=== PATIENT | male | born 1975 | race Caucasian/White ===

== ENCOUNTER 2020-01-14 10:42 | Outpatient (CLI) | payer OTHER, SELFPAY ==
--- NOTE | 2020-01-14 10:51 | XR_ITS ---
WS: [id number] RIGHT ELBOW: 3 VIEW(S) TECHNIQUE: AP, oblique and lateral. HISTORY: LEFT ELBOW INJURY COMPARISON: None available. No acute fractures or dislocation. No joint effusion. No soft tissue abnormality. XR/XR elbow RT min 3V* [id number] IMPRESSION: Normal RIGHT elbow.
--- NOTE | 2020-01-14 10:51 | XR_ITS ---
WS: [id number] LEFT ELBOW: 3 VIEW(S) TECHNIQUE: AP, oblique and lateral. HISTORY: LEFT ELBOW INJURY COMPARISON: None available. No acute fractures or dislocation. No joint effusion. Enthesopathy at the triceps tendon attachment. No soft tissue abnormality. XR/XR elbow LT min 3V* [id number] IMPRESSION: No fracture. No joint effusion.
== END 2020-01-14 10:43 | disposition home or self-care (01) ==
LOC: RAD 10:47
PROVIDERS: Visit Provider Nurse Practitioner Family
DX: S59.902A Unspecified injury of left elbow, initial encounter (principal); X58.XXXA Exposure to other specified factors, initial encounter
CPT/HCPCS: 73080

== ENCOUNTER 2020-01-17 15:28 | Emergency (ER) | payer OTHER, SELFPAY ==
[2020-01-17 16:22] VITALS: BP 117/75; PULSE 85; RESP 14; TEMP 36.8; O2SAT 99; BMI 26.4
--- NOTE | 2020-01-17 16:48 | CTR_ITS ---
PROCEDURE INFORMATION: Exam: CT Cervical Spine Without Contrast Exam date and time: 01/17/2020 5:02 PM Age: 44 years old Clinical indication: Injury or trauma; Fall; Initial encounter; Blunt trauma; Injury details: Mid back pain; Additional info: Fall, upper back and neck pain TECHNIQUE: Imaging protocol: Computed tomography images of the cervical spine without contrast. Radiation optimization: All CT scans at this facility use at least one of these dose optimization techniques: automated exposure control; mA and/or kV adjustment per patient size (includes targeted exams where dose is matched to clinical indication); or iterative reconstruction. COMPARISON: No relevant prior studies available. RADIATION DOSE METRICS: Total DLP (mGy-cm): 930.23 FINDINGS: Vertebrae: Levoscoliosis. Discs/Spinal canal/Neural foramina: No significant disc protrusion. No severe spinal canal stenosis. No significant neural foraminal narrowing. Soft tissues: Unremarkable. Dental: Examination is limited secondary to metallic artifact from dental fillings and/or dental hardware. Lungs: Lung apices are normal. CT/CT cervical spin wo con* [id number] IMPRESSION: No acute C-spine findings. Radiation Dose CTDIVOL = (mGy): DLP = 930.23 (mGy-cm)
--- NOTE | 2020-01-17 16:48 | CTR_ITS ---
PROCEDURE INFORMATION: Exam: CT Chest With Contrast Exam date and time: 01/17/2020 5:02 PM Age: 44 years old Clinical indication: Injury or trauma; Fall; Initial encounter; Blunt trauma (contusions or hematomas); Additional info: Fall, back pain TECHNIQUE: Imaging protocol: Computed tomography of the chest with intravenous contrast. Radiation optimization: All CT scans at this facility use at least one of these dose optimization techniques: automated exposure control; mA and/or kV adjustment per patient size (includes targeted exams where dose is matched to clinical indication); or iterative reconstruction. Contrast material: OMNI; Contrast volume: 95 ml; Contrast route: INTRAVENOUS (IV); COMPARISON: No relevant prior studies available. RADIATION DOSE METRICS: Total DLP (mGy-cm): 848.21 FINDINGS: Lungs: Unremarkable. No consolidation. No masses. Pleural space: Unremarkable. No pneumothorax. No pleural effusion. Heart: Unremarkable. No cardiomegaly. No pericardial effusion. Aorta: Unremarkable. No aortic aneurysm. Lymph nodes: Unremarkable. No enlarged lymph nodes. Bones/joints: Displaced T3 and T4 spinous process fractures. Soft tissues: Unremarkable. CT/CT chest w con* [id number] IMPRESSION: Displaced T3 and T4 spinous process fractures. Radiation Dose CTDIVOL = (mGy): DLP = 848.21 (mGy-cm)
--- NOTE | 2020-01-17 16:48 | CTR_ITS ---
PROCEDURE INFORMATION: Exam: CT Thoracic Spine Without Contrast Exam date and time: 01/17/2020 5:02 PM Age: 44 years old Clinical indication: Injury or trauma; Fall; Initial encounter; Blunt trauma (contusions or hematomas); Additional info: Fall, back pain TECHNIQUE: Imaging protocol: Computed tomography images of the thoracic spine without contrast. Radiation optimization: All CT scans at this facility use at least one of these dose optimization techniques: automated exposure control; mA and/or kV adjustment per patient size (includes targeted exams where dose is matched to clinical indication); or iterative reconstruction. COMPARISON: No relevant prior studies available. RADIATION DOSE METRICS: Total DLP (mGy-cm): 848.21 FINDINGS: Vertebrae: Acute T3 and T4 spinous process fractures with mild displacement and angulation. Discs/Spinal canal/Neural foramina: No significant disc protrusion. No severe spinal canal stenosis. No significant neural foraminal narrowing. Soft tissues: Unremarkable. CT/CT thoracic spin wo con* [id number] IMPRESSION: Acute T3 and T4 spinous process fractures with mild displacement and angulation. Radiation Dose CTDIVOL = (mGy): DLP = 848.21 (mGy-cm)
--- NOTE | 2020-01-17 16:54 | ED_ITS ---
HPI - Fall General: Chief Complaint: Fall Stated Complaint: FELL DOWN A WILLIAM Time Seen by Provider: 01/17/20 16:32 History of Present Illness: HPI Narrative: This patient is a 44-year-old male who was out cutting some brush. He lost his balance and fell/rolled down about a 30 foot embankment. This occurred about 6 hours prior to coming in. He is complaining of severe pain in his upper back and this pain gets worse with any movement of his arms or taking a deep breath. He denies shortness of breath. He denies abdominal pain or hematuria. He denies any numbness or tingling in his arms or legs. He is able to ambulate without difficulty. He did not hit his head and has no loss of consciousness. MD complaint: fall Onset (ago): hour(s) (6) Fall from: standing and from height (distance) Fall witnessed: no Place fall occurred: home Loss of consciousness: None Prolonged down time: no Context: tripped/slipped Associated symptoms-after fall: Denies abdominal pain, chest pain, headache(s) or neck pain Review of Systems General: Reports: 10 or more systems reviewed and unremarkable except in HPI and below Const: Denies: fever(s), chills, fatigue or malaise Eyes: Denies: change in vision ENMT: Denies: odynophagia Card: Denies: chest pain or swelling of feet/ankles Resp: Reports: pain on inspiration; Denies: dyspnea, productive cough or non-productive cough GI: Denies: abdominal pain, nausea or vomiting : Denies: flank pain Musc: Reports: back pain; Denies: neck pain Skin/Breast: Denies: rash Neuro: Denies: headache(s), numbness in extremities or weakness in extremities Malik/Lymph: Denies: easy bruising or easy bleeding Physical Exam Const: COMMON NORMALS: no acute distress, patient oriented x3, no limitations and alert GENERAL APPEARANCE: cooperative and comfortable HENMT: HEAD & SCALP: normal to inspection FACE & SINUS: normal facial exam Eye: GENERAL EYE: appearance normal, both eyes and all related structures Neck/C-Spine: COMMON NORMALS: supple, no meningeal signs and no JVD Chest: COMMONS NORMALS: normal inspection of the chest CHEST: Yes abnormal inspection of the chest (Ecchymosis on the back in the upper T-spine area. No rib tenderness) and No localized rib tenderness with anteroposterior compression Resp: COMMON NORMALS: normal respiratory effort, No use of accessory muscles and clear to auscultation bilaterally AUSCULTATION: clear to auscultation bilaterally Cardio: COMMON NORMALS: no JVD, regular rate, regular rhythm and No murmurs present (Cardio) RATE: regular rate RHYTHM: regular rhythm GI: COMMON NORMALS: Normal to inspection, nondistended, normoactive bowel sounds present, Soft to palpation and non-tender INSPECTION: Yes normal to inspection AUSCULTATION: Yes normoactive bowel sounds PALPATION: Yes Soft to palpation Back/Pelvis: THORACIC SPINE/UPPER BACK: Yes thoracic spinal tenderness T-spine tenderness location: T2, T3, T4, T5 and T6 (Severe tenderness with ecchymosis and swelling) BACK IMAGE (MALE): 1. Ecchymosis, swelling, severe tenderness 2. Ecchymosis 3. Ecchymosis 4. Ecchymosis Extremity: COMMON NORMALS: normal to inspection Neuro: COMMON NORMALS: patient oriented x3, moves all extremities, no focal motor deficits and no sensory deficits noted SENSORIUM/ORIENTATION: Yes alert MENINGEAL SIGNS: Yes no meningeal signs Psych: COMMON NORMALS: mental status grossly normal, cooperative and normal affect Skin: COMMON NORMALS: no rashes or lesions noted and turgor normal GENERAL SKIN EXAM: no rashes or lesions noted and turgor normal Course ED course: Patient with a negative work-up except for 2 spinal process fractures at T3 and T4. After some pain medication he was much more comfortable and able to move around somewhat. He understands return precautions and follow- up instructions. Consultations: Consultation #1: Dr. Gerardo, neurosurgery at [facility] - advised ENDOSCOPIC TECHNICIAN brace, pain control and outpatient follow up with him in his office next week. Vital Signs: Vital signs: Vital Signs Temperature 98.2 F 01/17/20 16:22 Pulse Rate 78 01/17/20 21:16 Respiratory Rate 18 01/17/20 21:16 Blood Pressure 132/78 01/17/20 21:16 Pulse Oximetry 99 01/17/20 21:16 MDM - Fall Lab Data: Labs: Lab Results 01/17/20 01/17/20 01/17/20 Range/Units 17:20 17:20 17:20 WBC 14.4 H (4.0-10.0) 10^3/ uL RBC 5.09 (4.1-5.3) 10^6/u L Hgb 15.2 (11.7-16.6) g/dL Hct 45.5 (42.0-52.0) % MCV 89.4 (80-94) fL MCH 29.9 (28.0-34.0) pg MCHC 33.4 (30.0-36.0) g/dL RDW 13.2 (12.1-15.1) % Plt Count 339 (130-400) 10^3/c mm MPV 8.8 (7.4-10.4) fL Neut % (Auto) 78.6 % Lymph % (Auto) 14.6 % Person % (Auto) 5.3 % Eos % (Auto) 1.1 % Baso % (Auto) 0.2 % Neut # (Auto) 11.31 H (1.8-7.7) 10^3/u L Lymph # (Auto) 2.1 (0.8-4.8) 10^3/u L Person # (Auto) 0.8 (0.2-0.9) 10^3/u L Eos # (Auto) 0.2 (0.0-0.8) 10^3/u L Baso # (Auto) 0.0 (0.0-0.1) 10^3/u L Nucleated RBC % (a uto) 0 % Nucleated RBCs # 0.0 /100WBC Sodium 136 (136-145) mmol/L Potassium 4.0 (3.5-5.1) mmol/L Chloride 100 (98-107) mmol/L Carbon Dioxide 24 (22-29) mmol/L Anion Gap 16.0 (5-19) BUN 13 (6-20) mg/dL Creatinine 1.0 (0.7-1.2) mg/dL GFR Calculation 81.9 L (90-130) mL/min Glucose 99 (65-115) mg/dL Calculated Osmolal ity 278 L (285-295) mOsm/k g Lactate 1.4 (0.5-2.2) mmol/L Calcium 10.3 (8.5-10.5) mg/dL Total Bilirubin 0.4 (0.15-1.2) mg/dL AST 29 (0-40) U/L ALT 32 (0-41) U/L Alkaline Phosphata se 75 (40-130) IU/L Total Protein 8.2 (6.6-8.7) g/dL Albumin 5.4 H (3.5-5.2) g/dL Globulin 2.8 (1.3-4.6) g/dL Discharge Plan Discharge Patient Disposition: Home Clinical Impression: Fall (on)(from) incline, initial encounter Closed fracture of spinous process of thoracic vertebra Qualifiers: Encounter type: initial encounter Qualified Code(s): S22.008A - Other fracture of unspecified thoracic vertebra, initial encounter for closed fracture Condition: Stable Prescriptions: New oxycodone 5 mg tablet 5 mg PO Q6H PRN (Reason: pain) Qty: 30 RF: 0 naproxen 500 mg tablet 500 mg PO BID PRN (Reason: pain) Qty: 20 RF: 0 No Action Nexium 40 mg Capsule,Delayed Release(Dr/Ec) 40 mg PO DAILY RF: 0 levothyroxine 200 mcg Tablet 225 mcg PO DAILY RF: 0 lisinopril 40 mg Tablet 40 mg PO DAILY RF: 0 Crestor 40 mg Tablet 40 mg PO DAILY RF: 0 Paxil 1 tab PO DAILY RF: 0 Protonix 1 tab PO DAILY RF: 0 Referrals: Blu Gerardo MD [Referring] - 1 week Nola Luciano FNP [Primary Care Provider] - Discharge Diet: Usual diet Discharge Activity: Limit activity as instructed Patient Instructions: Thoracolumbar Fracture (ED) Activity Restrictions/Additional Instructions: You need to be in a ENDOSCOPIC TECHNICIAN brace, and we were not able to get one tonight. Our Flight Service Specialist will call tomorrow to help you in finding one. You can also call the office for the neurosurgeon to see if they can get one for you. No lifting. Limit bending and twisting. Follow up with Dr. Gerardo in [place] at the above address in about a week. Call tomorrow to schedule an appointment. Use the pain meds as prescribed. Return to the ED if new or worse symptoms includ ing trouble breathing, numbness, tingling or weakness. Discharge Date/Time: 01/17/20 21:18 Coding Level of Care Code ED Zookeeper for Chg Fwd Exam Comprehensive
[2020-01-17] MEDS: ondansetron 2 mg/ML SDV 2 mL 4 MG IVP (17:20)
[2020-01-17 17:21] VITALS: RESP 18
[2020-01-17] MEDS: morphine 4 mg/mL SDV 1 mL IVP (17:21)
[2020-01-17 17:30] LABS: Basophils % 0.2 %; Eosinophils # 0.2 10^3/uL (0.0-0.8); Eosinophils % 1.1 %; Hematocrit 45.5 % (42.0-52.0); Hemoglobin 15.2 g/dL (11.7-16.6); Lymphocytes # 2.1 10^3/uL (0.8-4.8); Lymphocytes % 14.6 %; Mean Corpuscular HGB Conc 33.4 g/dL (30.0-36.0); Mean Corpuscular Hemoglobin 29.9 pg (28.0-34.0); Mean Corpuscular Volume 89.4 fL (80-94); Mean Platelet Volume 8.8 fL (7.4-10.4); Monocytes # 0.8 10^3/uL (0.2-0.9); Monocytes % 5.3 %; Neutrophils # 11.31 10^3/uL (1.8-7.7); Neutrophils % 78.6 %; Nucleated Red Blood Cells % 0 %; Platelet Count 339 10^3/cmm (130-400); Red Blood Count 5.09 10^6/uL (4.1-5.3); Red Cell Distribution Width 13.2 % (12.1-15.1); White Blood Count 14.4 10^3/uL (4.0-10.0)
[2020-01-17 17:46] LABS: Lactate (Lactic Acid level) 1.4 mmol/L (0.5-2.2)
[2020-01-17 17:47] LABS: Alanine Aminotransferase 32 U/L (0-41); Albumin Level 5.4 g/dL (3.5-5.2); Alkaline Phosphatase 75 IU/L (40-130); Aspartate Amino Transferase 29 U/L (0-40); Blood Urea Nitrogen 13 mg/dL (6-20); Calcium 10.3 mg/dL (8.5-10.5); Carbon Dioxide 24 mmol/L (22-29); Chloride 100 mmol/L (98-107); Globulin 2.8 g/dL (1.3-4.6); Glomerular Filtration Rate 81.9 mL/min (90-130); Glucose 99 mg/dL (65-115); Osmolality Calculated 278 mOsm/kg (285-295); Sodium 136 mmol/L (136-145); Total Bilirubin 0.4 mg/dL (0.15-1.2); Total Protein 8.2 g/dL (6.6-8.7)
[2020-01-17] MEDS: iohexol 300 mg/mL 100 mL Btl 95 ML IV (18:00)
--- NOTE | 2020-01-17 18:11 | PC.NURSE ---
Patient educated that a urine sample is needed. Patient reports that he is unable to void at this time. Will continue to monitor patient.
[2020-01-17] MEDS: ketorolac 30 mg/mL INJ 15 MG IVP (18:50)
[2020-01-17 18:51] VITALS: RESP 16
[2020-01-17] MEDS: HYDROmorphone 1 mg/mL INJ 1 mL 0.5 MG IVP (18:51)
[2020-01-17 21:15] VITALS: RESP 18; O2SAT 99
[2020-01-17] MEDS: oxyCODONE-APAP 5-325 mg Tablet 2 TAB PO (21:15)
[2020-01-17 21:16] VITALS: BP 132/78; PULSE 78; RESP 18; O2SAT 99
--- NOTE | 2020-01-18 10:08 | DCPLANNER ---
resource manager had message to help patient with getting a DUST OPERATOR brace, manager of case management called [employer], spoke with Judi, was told that she came to the hospital last night and fitted patient for brace. resource manager had another message to speak with patient about getting a primary care physician. resource manager called patient at phone number [phone], patient was not taking any calls at this time.
--- NOTE | 2020-01-21 20:07 | DCPLANNER ---
PT CALLED AND ASKED ABOUT APPT WITH DR MOSQUERA. I CALLED THE DOCTORS OFFICE AND WAS ASKED TO FAX INFORMATION. THEY WILL REVIEW THE INFO AND MAKE PT APPT AND WILL CALL HIM WITH DATE AND TIME. PT WAS NOTIFIED OF THIS BY MYSELF.
--- NOTE | 2020-01-22 10:51 | DCPLANNER ---
LUZMARIA FROM DR GLEZ OFFICE CALLED AND ASKED FOR INFO TO BE SENT TO MAKE PT AN APPT WITH THEIR OFFICE. INFO WAS FAXED TO [phone]
--- NOTE | 2020-01-24 12:27 | PC.SOCIAL ---
Followed up on appt with [facility] jose david Han in ED request. Per Antonette at this clinic pt has appt tomorrow and is aware of appt date and time. Attempted to call patient to verify but unable to reach.
--- NOTE | 2020-01-24 12:29 | PC.SOCIAL ---
patient returned call and indicates he is aware of appt and will have imaging done today and will make his appt tomorrow at [facility]. He appreciates the followup call.
== END 2020-01-17 21:18 | disposition home or self-care (01) ==
LOC: ER 19:51 → ICU 20:18 → ER 20:46
PROVIDERS: Emergency Provider Emergency Medicine; PCP Nurse Practitioner Family
DX: S22.039A Unspecified fracture of third thoracic vertebra, initial encounter for closed fracture (principal); S22.049A Unspecified fracture of fourth thoracic vertebra, initial encounter for closed fracture; W17.81XA Fall down embankment (hill), initial encounter
CPT/HCPCS: 12345; 71260; 72125; 72128; 80053; 83605; 85025; 96374; 96375; 99282; 99284; J1170; J1885; J2270; J2405; Q9967

== ENCOUNTER 2020-02-20 08:55 | Day surgery (SDC) | payer OTHER, SELFPAY ==
[2020-02-18 10:54] VITALS: BMI 21.2
[2020-02-20 09:48] VITALS: BP 125/80; PULSE 70; RESP 18; TEMP 36.4; O2SAT 100
[2020-02-20] MEDS: sodium chloride 0.9% 1,000 ML 30 ML IV (09:49)
--- NOTE | 2020-02-20 10:00 | ANES.PREANE2 ---
Pre-Anesthetic Assessment Pre-Anesthetic Assessment: Height/Weight: Height 1.8 m Weight 68.946 kg Temp Pulse Resp BP Pulse Ox 97.5 F L 70 18 125/80 100 02/20/20 09:48 02/20/20 09:48 02/20/20 09:48 02/20/20 09:48 02/20/20 09:48 Preop Diagnosis: Long-term PPI use and history of gastric ulcer Proposed Procedure: Operation Date: 02/20/20 10:45 Proposed Procedures p EGD 56689 K21.9(Not Applicable) - Camacho Houston MD Last intake: Intake Last Liquid Date 02/19/20 Last Liquid Time 22:00 Last Solid Date 02/19/20 Last Solid Time 20:00 Social: Social History: Alcohol and No tobacco Exam: Pre-Anes Outpt Exam: alert, oriented x 3, clear to auscultation bilaterally and regular rate & rhythm Airway: Submandibular: WNL Cervical ROM: WNL MP: 1 History/ROS: No significant history except as noted Pulmonary: Pulmonary: None reported CV/HEM: CV/HEM: HTN : : None reported Hepatic: Hepatic: None reported GI: GI: GERD Metabolic: Metabolic: Thyroid Musc/skel: Musc/skel: None reported Neuropsych: Neuropsych: None reported Anesthetic Plan: ASA status: 3 Anesthesia: MAC Meds/Allergies Current Medications: Current Medications Generic Name Dose Route Start Last Admin Trade Name Freq PRN Reason Stop Dose Admin Sodium Chloride 1,000 mls @ 30 ml s/hr 02/20/20 09:30 02/20/20 09:49 Sodium Chloride 0.9% IV 30 mls/hr .Q24H STACY Administration PFSH Anesthesia PFSH: Medical History (Updated 01/25/20 @ 11:07 by Camacho Houston MD) GERD (gastroesophageal reflux disease) Data Anesthesia Cardiac Studies: No Data to Display
--- NOTE | 2020-02-20 11:19 | W.PM.OPSUD ---
Surgery/Procedure H&P Update DATE OF PROCEDURE: February 20, 2020 DATE H&P PERFORMED: 01/24/20 H&P UPDATE INFORMATION: I have reviewed H&P completed within last 30 days, I have examined patient prior to procedure and No changes to prior documentation PREOP DIAGNOSIS: Long-term PPI use and history of gastric ulcer PRIMARY INDICATION FOR PROCEDURE: The same PLANNED PROCEDURE: Operation Date: 02/20/20 10:45 Proposed Procedures p EGD 57227 K21.9(Not Applicable) - Camacho Houston MD
[2020-02-20 11:28] VITALS: BP 113/65; PULSE 99; RESP 18; TEMP 36.7; O2SAT 95
[2020-02-20 11:37] VITALS: BP 123/77; PULSE 76; RESP 18; O2SAT 99
[2020-02-21 06:14] LABS: H. Pylori / CLO Test Negative
== END 2020-02-20 11:50 | disposition home or self-care (01) ==
PROVIDERS: PCP Nurse Practitioner Family; Visit Provider Surgery
PROC: 0DJ08ZZ Inspection of Upper Intestinal Tract, Via Natural or Artificial Opening Endoscopic (ICD-10-PCS; CPT 43235; principal; 2020-02-20 10:45)
DX: K21.9 Gastro-esophageal reflux disease without esophagitis (principal); K29.70 Gastritis, unspecified, without bleeding; I10 Essential (primary) hypertension
CPT/HCPCS: 12345; 43239; 87077; J2704; J3010; J7030

== ENCOUNTER 2020-03-04 14:48 | Outpatient (CLI) | payer OTHER, SELFPAY ==
--- NOTE | 2020-03-04 14:56 | US_ITS ---
WS: [id number] ULTRASOUND THYROID TECHNIQUE: Ultrasound of the thyroid. CLINICAL INFORMATION: GOITER COMPARISON: one. FINDINGS: Thyroid: Diffuse heterogeneous thyroid echotexture. Overall decreased thyroid volume. No dominant nod ules to target for biopsy. Right thyroid lobe: 3.5 cm x 1.2 cm x 1.1 cm Left thyroid lobe: 3.3 cm x 1.3 cm x 1.0 cm. Isthmus: 0.4 mm. Cervical lymphadenopathy: None. US/US thyroid [id number] IMPRESSION: Diffuse heterogeneous thyroid echotexture with overall decreased thyroid volume . Recommend correlation with thyroid function studies.
== END 2020-03-04 14:49 | disposition home or self-care (01) ==
LOC: US 14:49
PROVIDERS: PCP Nurse Practitioner Family; Visit Provider Nurse Practitioner Family
DX: E04.9 Nontoxic goiter, unspecified (principal); E03.9 Hypothyroidism, unspecified
CPT/HCPCS: 76536

== ENCOUNTER → 2020-03-18 08:11 | Outpatient (BNVA) | payer OTHER, SELFPAY | PROVIDERS: PCP Nurse Practitioner Family; Referring Provider Dermatology; Visit Provider Dermatology | DX: L82.0 Inflamed seborrheic keratosis (principal); Z86.018 Personal history of other benign neoplasm; D22.9 Melanocytic nevi, unspecified | CPT/HCPCS: 17110; 99203 ==

== ENCOUNTER 2020-05-09 07:44 | Emergency (ER) | payer OTHER, SELFPAY ==
--- NOTE | 2020-05-09 07:52 | XR_ITS ---
WS: [id number] Left ankle, 3 views, 05/09/2020 Clinical Data: injury Comparison: None. Findings: There is a fracture of the distal left fibula. There is minimal widening of the distance between the medial malleolus and talus. There is soft tissu e swelling over the lateral malleolus. No other fractures are seen. There is an Achilles spur. XR/XR ankle LT min 3V* [id number] Impression: Distal left fibular fracture.
[2020-05-09 08:04] VITALS: BP 148/94; PULSE 84; RESP 15; TEMP 36.8; O2SAT 96; BMI 26.9
[2020-05-09] MEDS: HYDROcodone-acetaminophen 10-325 mg Tablet 1 TAB PO (08:19)
--- NOTE | 2020-05-09 08:33 | ED_ITS ---
HPI - Extremity Problem General: Chief complaint: Extremity Injury, Lower Stated complaint: Left Ankle Injury Time Seen by Provider: 05/09/20 07:46 Source: patient Mode of arrival: wheelchair Limitations: no limitations History of Present Illness: HPI Narrative: Pt states he stepped off a ladder wrong yesterday and had immediate pain to his left ankle. Pt states he can not bear weight due to pain. Pt denies any numbness or tingling. pt denies any fever. Pt denies any other injury or trauma. Complaint: extremity pain Onset (ago): day(s) (1) Pain Consistency: constant Location: left Severity scale (1-10): 8 Quality: sharp and constant Radiation: none Relieving factors: immobilization Exacerbating factors: weight bearing Associated symptoms: Reports no associated symptoms; Deny chest pain or fever(s) Review of Systems General: Reports: 10 or more systems reviewed and unremarkable except in HPI and below Const: Denies: fever(s) or chills Card: Denies: chest pain Resp: Denies: dyspnea or productive cough GI: Denies: abdominal pain, nausea or vomiting : Denies: flank pain, difficulty urinating or dysuria Musc: Reports: extremity pain (left ankle pain); Denies: neck pain or back pain Neuro: Denies: headache(s) or numbness in extremities Psych: Denies: anxiety, depression, suicidal ideation or homicidal ideation [facility] ED PFSH: Medical History GERD (gastroesophageal reflux disease) Social History Smoking and tobacco status: never smoked Alcohol intake: current Alcohol intake frequency: 0-2 Drinks per Day Substance/Drug Use: current Substance/Drug use frequency: daily Substance/Drug use type: Marijuana Physical Exam Const: COMMON NORMALS: no acute distress and no limitations GENERAL APPEARANCE: cooperative, comfortable, well kempt and well developed Resp: COMMON NORMALS: normal respiratory effort Cardio: COMMON NORMALS: regular rate and regular rhythm RATE: regular rate RHYTHM: regular rhythm Extremity: COMMON NORMALS: capillary refill normal, no calf tenderness and no pedal edema GENERAL: Yes deformity, Yes edema and Yes weight-bearing difficulty LEFT LOWER EXTREMITY: Yes lower leg Psych: APPEARANCE: Yes well kempt Course Vital Signs: Vital signs: Vital Signs Temperature 98.3 F 05/09/20 08:04 Pulse Rate 84 05/09/20 08:04 Respiratory Rate 15 05/09/20 08:04 Blood Pressure 148/94 05/09/20 08:04 Pulse Oximetry 96 05/09/20 08:04 MDM - Extremity (Nontraumatic) MDM Narrative: Medical decision making narrative: PT is well appearing non toxic and in no acute distress. Pt does have a distal tibial fracture by by interpretation of xray. Pt is NVi distall. Pt was place in posterior OCL and S ugar tong OCL and given crutches. Post splint application pt remained NVI distally. Pt will be referred to Ortho. Pt sent home with short course of pain meds advised to rest ice and elevate and non weight bearing w crutches Discharge Plan Discharge Patient Disposition: Home Clinical Impression: Closed tibial fracture Qualifiers: Encounter type: initial encounter Tibia location: distal Fracture morphology: other fracture Laterality: left Qualified Code(s): S82.392A - Other fracture of lower end of left tibia, initial encounter for closed fracture Condition: Stable Prescriptions: [place] 5-325 mg tablet 1 tab PO Q6H PRN (Reason: pain) Qty: 14 RF: 0 No Action esomeprazole magnesium [Nexium] 40 mg Capsule,Delayed Release(Dr/Ec) 40 mg PO DAILY RF: 0 levothyroxine 200 mcg Tablet 225 mcg PO DAILY RF: 0 lisinopril 40 mg Tablet 40 mg PO DAILY RF: 0 rosuvastatin [Crestor] 40 mg Tablet 40 mg PO DAILY RF: 0 Paxil 1 tab PO DAILY RF: 0 Protonix 1 tab PO DAILY RF: 0 naproxen 500 mg tablet 500 mg PO BID PRN (Reason: pain) Qty: 20 RF: 0 Hold Instructions: Resume on 02/23/20. Discharge Orders: Discharge Order (Routine); Ordered 05/09/20 Ordered By: Alyce Hess Referrals: Nola Luciano FNP [Primary Care Provider] - Discharge Diet: Advance as tolerated Discharge Activity: Use walker/crutches as instructed Activity Restrictions/Additional Instructions: Street Railway Line Installer will call you with an appointment to see Orthopedist. Will need to see in the next 3-4 days Take medications as directed and do not drive or operate heavy machinery while taking Rest Ice Elevate Use crutches and non weight bearing Coding Level of Care Code ED Director Of Surgery for Ximena Boateng
--- NOTE | 2020-05-09 08:40 | DCPLANNER ---
commercial relationship manager was asked to schedule a follow up appointment for patient with ortho. commercial relationship manager called the ortho clinic, spoke with Aida, gave clinic patients information. commercial relationship manager was told that patients information would be printed and reviewed. Clinic will call patient with appointment information.
--- NOTE | 2020-05-09 08:57 | PC.NURSE ---
Posterior OCL and stirrup splint placed to left ankle at this time using cast padding, ortho glass and elastic bandage. Pt tolerated well. Crutch use and education performed at this time time as well.
[2020-05-09 09:05] VITALS: PULSE 84; RESP 18; O2SAT 96
--- NOTE | 2020-05-14 07:44 | DCPLANNER ---
Patient had a follow up appointment scheduled for 05.13.20 with ortho - patient did attend appointment.
== END 2020-05-09 09:05 | disposition home or self-care (01) ==
PROVIDERS: Emergency Provider Registered Nurse; PCP Nurse Practitioner Family
DX: S82.392A Other fracture of lower end of left tibia, initial encounter for closed fracture (principal); X50.1XXA Overexertion from prolonged static or awkward postures, initial encounter
CPT/HCPCS: 12345; 29515; 73610; 99281; 99283; E0114

== ENCOUNTER 2020-05-13 08:33 | Emergency (ER) | payer OTHER, SELFPAY ==
[2020-05-13 08:43] VITALS: BP 132/93; PULSE 103; RESP 18; TEMP 36.9; O2SAT 97; BMI 26.9
[2020-05-13 08:49] VITALS: BP 132/93; PULSE 86; RESP 16; O2SAT 96
--- NOTE | 2020-05-13 09:24 | ED_ITS ---
HPI - Recheck/Abnormal Lab/Rx General: Chief Complaint: Recheck/Abnormal Lab/Rx Stated Complaint: Wants more pain meds Time Seen by Provider: 05/13/20 08:49 History of Present Illness: HPI narrative: 45-year-old male presents to the emergency room with complaint of left ankle pain. He was seen on the for a distal fibula fracture minimally displaced. It was splinted he was given pain medication and referred to Ortho is not yet been to the Ortho clinic presents today requesting refill of hydrocodone. MD complaint: medication refill request Initial visit (ago): day(s) Initial visit for: other (Distal fibula fracture) Returns today for: persistent/worsening pain related to initial visit Symptoms since prior visit: no new symptoms Context: ran out of medication Associated symptoms: none and chest pain Treatments prior to arrival: splint(s) and given pain meds on (05/09) Review of Systems Const: Denies: fever(s), chills, body aches, change in appetite, fatigue or malaise Card: Denies: chest pain, edema, dyspnea on exertion or orthopnea Resp: Denies: dyspnea, productive cough or non-productive cough GI: Denies: abdominal pain, nausea, vomiting, hematemesis, coffee ground emesis, diarrhea, constipation, bloating, hematochezia or melena Skin/Breast: Denies: rash or pruritus PFSH ED PFSH: Medical History GERD (gastroesophageal reflux disease) Social History Smoking and tobacco status: never smoked Alcohol intake: current Alcohol intake frequency: 0-2 Drinks per Day Physical Exam Const: COMMON NORMALS: no acute distress GENERAL APPEARANCE: cooperative and comfortable ORIENTATION/CONSCIOUSNESS: Yes awake, Yes oriented to person, Yes oriented to place and Yes oriented to time HENMT: COMMON NORMALS: normocephalic, atraumatic and hearing grossly normal bilaterally HEAD & SCALP: normocephalic and atraumatic Neck/C-Spine: COMMON NORMALS: no JVD Lymph: LYMPHATIC: no lymphadenopathy noted and no lymphedema noted Resp: COMMON NORMALS: normal respiratory effort, No retractions, No use of accessory muscles and clear to auscultation bilaterally AUSCULTATION: clear to auscultation bilaterally Cardio: COMMON NORMALS: no JVD, regular rate, regular rhythm and No murmurs p resent (Cardio) RATE: regular rate RHYTHM: regular rhythm Extremity: COMMON NORMALS: normal to inspection, capillary refill normal, no clubbing, cyanosis or edema, no calf tenderness and no pedal edema Neuro: SENSORIUM/ORIENTATION: Yes oriented to person, Yes oriented to place and Yes oriented to time Skin: COMMON NORMALS: no rashes or lesions noted GENERAL SKIN EXAM: no rashes or lesions noted Course Vital Signs: Vital signs: Vital Signs Temperature 98.4 F 05/13/20 08:43 Pulse Rate 86 05/13/20 08:49 Respiratory Rate 16 05/13/20 08:49 Blood Pressure 132/93 05/13/20 08:49 Pulse Oximetry 96 05/13/20 08:49 Discharge Plan Discharge Patient Disposition: Home Clinical Impression: Closed tibial fracture Condition: Stable Prescriptions: No Action [place] 5-325 mg tablet 1 tab PO Q6H PRN (Reason: pain) Qty: 14 RF: 0 esomeprazole magnesium [Nexium] 40 mg Capsule,Delayed Release(Dr/Ec) 40 mg PO DAILY RF: 0 levothyroxine 200 mcg Tablet 225 mcg PO DAILY RF: 0 lisinopril 40 mg Tablet 40 mg PO DAILY RF: 0 rosuvastatin [Crestor] 40 mg Tablet 40 mg PO DAILY RF: 0 Paxil 1 tab PO DAILY RF: 0 Protonix 1 tab PO DAILY RF: 0 naproxen 500 mg tablet 500 mg PO BID PRN (Reason: pain) Qty: 20 RF: 0 Hold Instructions: Resume on 02/23/20. Discharge Orders: Discharge Order (Routine); Ordered 05/13/20 Ordered By: Ranjith Cruz Referrals: Nola Luciano, [employer] MACHINE OPERATOR [Primary Care Provider] - Discharge Diet: Usual diet Discharge Activity: Limit activity as instructed Activity Restrictions/Additional Instructions: Upon discharge please go directly to the orthopaedic clinic. Coding Level of Care Code ED Cloth Shrinking Supervisor for Ximena Boateng
[2020-05-13 09:26] VITALS: BP 127/94; PULSE 80; RESP 18; O2SAT 98
== END 2020-05-13 09:29 | disposition home or self-care (01) ==
LOC: ER 09:27
PROVIDERS: Emergency Provider Family Medicine
DX: S82.202A Unspecified fracture of shaft of left tibia, initial encounter for closed fracture (principal); X58.XXXA Exposure to other specified factors, initial encounter
CPT/HCPCS: 12345; 73610; 99282

== ENCOUNTER 2020-05-13 11:18 | Outpatient (CLI) | payer OTHER, SELFPAY | END 2020-05-13 11:19 | disposition home or self-care (01) | LOC: SPT 11:33 | PROVIDERS: Visit Provider Orthopaedic Surgery | DX: Z46.89 Encounter for fitting and adjustment of other specified devices (principal); S82.62XA Displaced fracture of lateral malleolus of left fibula, initial encounter for closed fracture; X58.XXXA Exposure to other specified factors, initial encounter | CPT/HCPCS: 97760; L4361 ==

== ENCOUNTER → 2020-05-27 09:23 | Outpatient (BNVA) | payer OTHER, SELFPAY | PROVIDERS: Visit Provider Orthopaedic Surgery | DX: S82.62XA Displaced fracture of lateral malleolus of left fibula, initial encounter for closed fracture (principal) | CPT/HCPCS: 73610 ==

== ENCOUNTER → 2020-06-24 11:16 | Outpatient (BNVA) | payer OTHER, SELFPAY | PROVIDERS: Visit Provider Orthopaedic Surgery | DX: S82.62XA Displaced fracture of lateral malleolus of left fibula, initial encounter for closed fracture (principal); X58.XXXA Exposure to other specified factors, initial encounter | CPT/HCPCS: 73610 ==

== ENCOUNTER → 2020-07-22 11:18 | Outpatient (BNVA) | payer OTHER, SELFPAY | PROVIDERS: Visit Provider Orthopaedic Surgery | DX: S82.62XD Displaced fracture of lateral malleolus of left fibula, subsequent encounter for closed fracture with routine healing (principal); X58.XXXD Exposure to other specified factors, subsequent encounter | CPT/HCPCS: 73610 ==